=== PATIENT | female | born 1980 | race African-American/Black ===

== ENCOUNTER 2020-09-24 19:40 | Emergency (ER) | payer MEDICAID ==
[2020-09-24] MEDS ORDERED: DiphenhydrAMINE HCL 50 MG/ML VIAL ONE (20:58)
[2020-09-24] MEDS ORDERED: FAMOTIDINE 20MG TAB 20 MG TAB ONE (20:58)
[2020-09-24] MEDS ORDERED: DEXAMETHASONE SOD PHOSPHATE 4 MG/ML 5ML VIAL ONE (20:59)
== END 2020-09-24 21:36 | disposition home or self-care (01) ==
LOC: EDSEX 19:40 → EDH 19:40
DX: L50.0 Allergic urticaria (principal); Z91.018 Allergy to other foods; Z98.51 Tubal ligation status; Z72.0 Tobacco use; Z98.890 Other specified postprocedural states
CPT/HCPCS: 96372 ×2; 99284; J1100; J1200